=== PATIENT | male | born 1995 | race Caucasian/White ===

== ENCOUNTER 2020-07-30 13:15 | Outpatient (REF) | payer OTHER, SELFPAY | END 2020-07-30 13:16 | disposition home or self-care (01) | LOC: HO.LAB 13:15 | PROVIDERS: Visit Provider Internal Medicine | DX: Z20.822 Contact with and (suspected) exposure to COVID-19 (principal) | CPT/HCPCS: 36415; C9803; U0003; U0005 ==

== ENCOUNTER 2023-03-09 19:14 | Emergency (ER) | payer OTHER, SELFPAY ==
[2023-03-09 19:41] VITALS: BP 151/97; PULSE 85; RESP 18; TEMP 37.3; O2SAT 97; BMI 24.2
--- NOTE | 2023-03-09 19:45 | ED_ITS ---
HPI - Nausea/Vomiting/Diarrhea General Chief complaint: Nausea/Vomiting/Diarrhea Stated complaint: Vomiting/dehydrated/lightheaded/upset stomach Time Seen by Provider: 03/09/23 21:00 Source: patient Mode of arrival: ambulatory Limitations: no limitations History of Present Illness HPI Narrative: Patient comes to the emergency room complaining of nausea vomiting for 4-5 days and decreased p.o. intake. Patient admits that he smokes marijuana, last time 4 days ago. Patient states a few days ago he had diarrhea but not in the last 48 hours. Patient states that any time he tries to eat or drink anything, he vomits immediately. Related Data Previous Rx's Medication Instructions Recorded ondansetron 4 mg disintegrating 4 mg PO Q6H PRN nausea and 03/09/23 tablet vomiting #10 tabs Allergies Allergy/AdvReac Type Severity Reaction Status Date / Time amoxicillin Allergy Rash Verified 03/09/23 19:41 Review of Systems 2 Review of Systems: Constitutional : No Weight loss, No Fever, No Chills, No Night Sweats, No Fatigue, No Malaise ENT/Mouth : No Hearing loss, No Ear Pain, No Nasal Congestion, No Sinus Pain, No Hoarseness, No sore throat, No Rhinorrhea, No Swallowing Difficulty Eyes: No Eye Pain, No Swelling, No Redness, No Foreign Body, No Discharge, No Vision Changes Cardiovascular : No Chest Pain, No SOB, No Dyspnea on Exertion, No Orthopnea, No Edema, No Palpitations Respiratory : No Cough, No Sputum, No Wheezing, No Smoke Exposure, No Dyspnea Gastrointestinal : Complaining of nausea vomiting, diarrhea subsided. No Constipation, Complaining of intermittent abdominal cramping,No Hematochezia, No Melena Genitourinary : no irregular bleeding, No Dysuria, No Urinary Frequency, No Hematuria, No Urinary Incontinence, No Urgency, No Flank Pain, No Urinary Flow Changes, No Hesitancy Musculoskeletal : No joint pain, No Myalgias, No Joint Swelling Skin : No Skin Lesions, No rash Neuro : No Weakness, No Numbness, No Paresthesias, No Loss of Consciousness, No Dizziness, No Headache Psych : No Anxiety/Panic, No Depression, No SI/HI/AH/VH, No Social Issues, Heme/Lymph: No Bruising, No Bleeding,No Lymphadenopathy Endocrine : No Polyuria, No Polydipsia, No Temperature Intolerance PMFSH Past Medical History Medical History (Updated 03/09/23 @ 22:52 by Jaja Leonard MD) Depression with anxiety Social History Social History Alcohol intake: current Alcohol intake frequency: holidays/special occasions only Smoked in Last 30 Days: No Use of substances other than those prescribed or required for medical reasons: No Advance Directives: No Advance Directives Information Provided: No Physical Exam 2 Vital Signs: Vital Signs: Last Vital Signs Temp 99.1 F 03/09/23 19:41 Pulse 78 03/09/23 22:30 Resp 18 03/09/23 19:41 BP 127/77 03/09/23 22:30 Pulse Ox 98 03/09/23 22:30 O2 Del Method Room Air 03/09/23 22:30 BMI result Body Mass Index 24.2 Course Course Course Narrative: This is an RME: Additional HPI, ROS, PE not included below will be deferred to primary provider. This is 27-year-old male presenting to the emergency department for evaluation of nausea vomiting since this morning. Unable to tolerate p.o. secondary to nausea and vomiting. He also reports he stopped smoking marijuana Monday. Abdomen is soft, nontender. Mildly hypertensive, all other vital signs within normal limits. Plan: Labs, viral swabs Medications Administered Discontinued Medications Generic Name Dose Route Start Last Admin Trade Name Khurram PRN Reason Stop Dose Admin Diphenhydramine HCl 25 mg 03/09/23 21:06 03/09/23 21:15 Diphenhydramine Hcl 50 Mg/Ml Vial IVPUSH 03/09/23 21:07 25 mg ONCE ONE Administration Sodium Chloride 1,000 mls @ 999 mls/hr 03/09/23 21:06 03/09/23 22:11 Ns IVCONT 03/09/23 22:06 Infused .Q1H1M ONE Infusion Metoclopramide HCl 10 mg 03/09/23 21:06 03/09/23 21:15 Metoclopramide Hcl 10 Mg/2 Ml Vial IVPUSH 03/09/23 21:07 10 mg ONCE ONE Administration Medical Decision Making Medical Decision Making [facility] Narrative: - patient's physical exam is unremarkable, no abdominal pain on palpation, imaging not indicated this time - patient having IV fluids, Reglan, Benadryl - my interpretation of labs: Unremarkable hematology and chemistry - patient has not vomited in the ED - patient id for discharge Differential Diagnosis Differential Diagnoses: The differential diagnosis associated with the presentation includes ( cyclical vomiting, viral syndrome, gastroenteritis) Lab Data MDM Lab Attestation statement: I reviewed the patient's lab results. 03/09/23 20:35 03/09/23 20:35 Labs: Lab Results 03/09/23 Range/Units 20:35 WBC 8.6 (4.8-10.8) X10*3/uL RBC 5.75 (4.60-5.80) X10*6/uL Hgb 17.4 (14.0-18.0) g/dl Hct 51.4 (42.0-52.0) % MCV 89.4 (80.0-98.0) fL MCH 30.3 (27.0-33.0) pg MCHC 33.9 (31.0-36.0) g/dl RDW 13.2 (11.0-16.0) % Plt Count 278 (160-400) X10*3/uL MPV 10.2 (9.4-12.4) fL Immature Gran % (Auto) 0.2 (0.0-0.4) % Neut % (Auto) 65.9 (45-73) % Lymph % (Auto) 18.7 L (20-40) % [place] % (Auto) 8.1 (2-11) % Eos % (Auto) 6.0 H (0-4) % Baso % (Auto) 1.1 (0-2) % Lymph # (Auto) 1.6 (1.2-4.9) X10*3/uL [place] # (Auto) 0.7 (0.1-1.2) X10*3/uL Eos # (Auto) 0.5 H (0.0-0.4) X10*3/uL Baso # (Auto) 0.1 (0.0-0.2) X10*3/uL Abs Immat Gran (auto) 0.02 (0.00-0.03) X10*3/uL Absolute Neuts (auto) 5.7 (2.0-8.3) x10*3/uL Absolute Nucleated RBC 0.000 (0.0-0.012) X10*3/uL Nucleated RBC % (auto) 0.0 (0.0-0.2) /100WBC Sodium 140 (135-145) mmol/L Potassium 4.4 (3.3-5.1) mmol/L Chloride 104 (96-108) mmol/L Carbon Dioxide 26 (22-29) mmol/L Anion Gap 14 (12-20) BUN 10 (9-16) mg/dL Creatinine 1.05 (0.5-1.4) mg/dL Estim Creat Clear Calc 104.7 Estimated GFR > 60 Random Glucose 91 (60-115) mg/dL Calcium 9.9 (8.4-10.2) mg/dL Magnesium 2.4 (1.6-2.6) mg/dL Total Bilirubin 0.7 (0.0-1.0) mg/dL Direct Bilirubin 0.2 (0.0-0.5) mg/dL AST 24 (5-37) U/L ALT 27 (0-40) U/L Alkaline Phosphatase 73 (39-117) U/L Total Protein 8.4 H (6.5-8.0) g/dL Albumin 4.9 (3.5-5.0) g/dL Lipase 12 (8-78) U/L Influenza Type A (PCR) NEGATIVE (Negative) Influenza Type B (PCR) NEGATIVE (Negative) RSV RNA Qual (PCR) NEGATIVE (Negative) SARS-CoV-2 RNA (RT-PCR) NEGATIVE (Negative) Discharge Plan Discharge Clinical Impression: Nausea & vomiting Patient Disposition: Home, Self-Care Instructions: Acute Nausea and Vomiting (ED) Additional Instructions: Please follow-up with your primary care physician tomorrow. If you have any worsening or new symptoms, please return to the emergency room or call 911 Prescriptions: New ondansetron 4 mg tablet,disintegrating 4 mg PO Q6H PRN (Reason: nausea and vomiting) Qty: 10 0RF
[2023-03-09 20:41] LABS: MANUAL DIFF FLAG NO
[2023-03-09 20:42] LABS: Basophils Absolute Auto 0.1 X10*3/uL (0.0-0.2); Basophils Percent Auto 1.1 % (0-2); Eosinophils Absolute Auto 0.5 X10*3/uL (0.0-0.4); Hematocrit 51.4 % (42.0-52.0); Hemoglobin 17.4 g/dl (14.0-18.0); Imm Gran Abs Auto 0.02 X10*3/uL (0.00-0.03); Imm Gran Pct Auto 0.2 % (0.0-0.4); Lymphocytes Absolute Auto 1.6 X10*3/uL (1.2-4.9); Lymphocytes Percent Auto 18.7 % (20-40); Mean Corpuscular HGB Conc 33.9 g/dl (31.0-36.0); Mean Corpuscular Hemoglobin 30.3 pg (27.0-33.0); Mean Corpuscular Volume 89.4 fL (80.0-98.0); Mean Platelet Volume 10.2 fL (9.4-12.4); Monocytes Absolute Auto 0.7 X10*3/uL (0.1-1.2); Monocytes Percent Auto 8.1 % (2-11); Neutrophils Absolute Auto 5.7 x10*3/uL (2.0-8.3); Neutrophils Percent Auto 65.9 % (45-73); Platelet Count 278 X10*3/uL (160-400); Red Blood Count 5.75 X10*6/uL (4.60-5.80); Red Cell Distribution Width 13.2 % (11.0-16.0); White Blood Count 8.6 X10*3/uL (4.8-10.8)
[2023-03-09 21:07] LABS: Alanine Aminotransferase 27 U/L (0-40); Albumin Level 4.9 g/dL (3.5-5.0); Alkaline Phosphatase 73 U/L (39-117); Anion Gap 14 (12-20); Aspartate Amino Transferase 24 U/L (5-37); Bilirubin Direct 0.2 mg/dL (0.0-0.5); Bilirubin Total 0.7 mg/dL (0.0-1.0); Blood Urea Nitrogen 10 mg/dL (9-16); Calcium 9.9 mg/dL (8.4-10.2); Carbon Dioxide 26 mmol/L (22-29); Chloride 104 mmol/L (96-108); Creatinine Clr Calc Pharmacy 104.7; Estimated Glomerular Filt Rate > 60; Glucose Random 91 mg/dL (60-115); Lipase 12 U/L (8-78); Magnesium 2.4 mg/dL (1.6-2.6); Potassium 4.4 mmol/L (3.3-5.1); Sodium 140 mmol/L (135-145); Total Protein 8.4 g/dL (6.5-8.0)
[2023-03-09] MEDS: diphenhydrAMINE HCL 50 MG/ML VIAL 25 MG IVPUSH (21:15)
[2023-03-09] MEDS: Metoclopramide HCl 10 MG/2 ML VIAL IVPUSH (21:15)
[2023-03-09] MEDS: 0.9 % Sodium Chloride 1,000 ML 999 ML IVCONT (21:15)
[2023-03-09 21:29] LABS: Influenza A PCR NEGATIVE (Negative); Influenza B PCR NEGATIVE (Negative); Resp Syncy Virus RNA Qual PCR NEGATIVE (Negative); SARS COV2 PCR INHOUSE NEGATIVE (Negative)
--- NOTE | 2023-03-09 22:13 | PC.NURSE ---
late entry: 20g IV placed in LAC, fluids completed at this time
[2023-03-09 22:30] VITALS: BP 127/77; PULSE 78; O2SAT 98
== END 2023-03-09 23:00 | disposition home or self-care (01) ==
PROVIDERS: Physician Assistant Medical; Emergency Provider Emergency Medicine; PCP Internal Medicine
DX: R11.2 Nausea with vomiting, unspecified (principal); F12.90 Cannabis use, unspecified, uncomplicated; I10 Essential (primary) hypertension; Z20.822 Contact with and (suspected) exposure to COVID-19; Z20.828 Contact with and (suspected) exposure to other viral communicable diseases
CPT/HCPCS: 0241U; 36415; 80048; 80076; 83690; 83735; 85025; 96361; 96374; 96375; 99284; J1200; J2765

== ENCOUNTER 2023-05-31 07:43 | Outpatient (REF) | payer OTHER, SELFPAY ==
--- NOTE | ~2023-05-31 | FL_ITS ---
EXAMINATION: XR FLUOROSCOPY UPPER GI WITH AIR CLINICAL INFORMATION: Nausea after eating COMPARISON: None TECHNIQUE: Fluoroscopic air contrast upper GI examination was performed utilizing standard techniques with thin and thick barium and effervescent granules. Numerous spot images were obtained. FINDINGS: Dual and single contrast images of the esophagus demonstrate normal caliber, contour, and mucosal pattern. No evidence of stricture, mass, or ulcerations identified. Esophageal peristalsis was normal. A small type I hiatal hernia is present. No significant gastroesophageal reflux was seen during the course of the examination and on reflux views. Dual contrast and single contrast images of the stomach demonstrated normal contour and mucosal pattern without evidence of mass, ulceration, or other abnormality. Contrast freely passed into the gastric antrum and duodenal bulb without delay. Single and air-contrast images of the duodenal bulb demonstrate no abnormality. The duodenal sweep has a normal appearance, course, and mucosal fold appearance. The imaged proximal jejunum has a normal fold pattern and caliber. FLUOROSCOPY TIME: 3 minutes 33 seconds Number of Spot Images: 13 Number of Cine: 6 DOSE AREA PRODUCT: 1665 uGy-m2 (microgray-meter squared) FL/FL upper GI w air IMPRESSION: 1. Small type I hiatal hernia, otherwise unremarkable examination This procedure was performed by Andres Saldñaa PA-C, and supervised by Dr. Foreman
== END 2023-05-31 07:44 | disposition home or self-care (01) ==
LOC: HO.XRAY 07:43
PROVIDERS: PCP Internal Medicine; Visit Provider Internal Medicine
DX: K21.9 Gastro-esophageal reflux disease without esophagitis (principal); R13.10 Dysphagia, unspecified
CPT/HCPCS: 74246

== ENCOUNTER → 2023-05-31 07:45 | Outpatient (BNV) | payer OTHER, SELFPAY | PROVIDERS: PCP Internal Medicine; Visit Provider Radiology Diagnostic Radiology | DX: R11.0 Nausea (principal) | CPT/HCPCS: 74246 ==

== ENCOUNTER 2023-07-07 10:41 | Outpatient (REF) | payer OTHER, SELFPAY ==
[2023-07-07 13:11] LABS: MANUAL DIFF FLAG NO
[2023-07-07 13:28] LABS: Basophils Absolute Auto 0.1 X10*3/uL (0.0-0.2); Basophils Percent Auto 1.3 % (0-2); Eosinophils Absolute Auto 0.7 X10*3/uL (0.0-0.4); Eosinophils Percent Auto 9.5 % (0-4); Hematocrit 49.7 % (42.0-52.0); Hemoglobin 16.4 g/dl (14.0-18.0); Imm Gran Abs Auto 0.02 X10*3/uL (0.00-0.03); Imm Gran Pct Auto 0.3 % (0.0-0.4); Lymphocytes Absolute Auto 1.7 X10*3/uL (1.2-4.9); Lymphocytes Percent Auto 24.4 % (20-40); Mean Corpuscular Hemoglobin 29.5 pg (27.0-33.0); Mean Corpuscular Volume 89.5 fL (80.0-98.0); Mean Platelet Volume 10.6 fL (9.4-12.4); Monocytes Absolute Auto 0.6 X10*3/uL (0.1-1.2); Monocytes Percent Auto 8.4 % (2-11); Neutrophils Absolute Auto 3.8 x10*3/uL (2.0-8.3); Neutrophils Percent Auto 56.1 % (45-73); Platelet Count 259 X10*3/uL (160-400); Red Blood Count 5.55 X10*6/uL (4.60-5.80); Red Cell Distribution Width 12.5 % (11.0-16.0); White Blood Count 6.8 X10*3/uL (4.8-10.8)
[2023-07-07 13:59] LABS: Alanine Aminotransferase 20 U/L (0-40); Albumin Level 4.4 g/dL (3.5-5.0); Alkaline Phosphatase 76 U/L (39-117); Anion Gap 11 (12-20); Aspartate Amino Transferase 18 U/L (5-37); Bilirubin Total 0.6 mg/dL (0.0-1.0); Blood Urea Nitrogen 13 mg/dL (9-16); Calcium 9.2 mg/dL (8.4-10.2); Carbon Dioxide 29 mmol/L (22-29); Chloride 105 mmol/L (96-108); Cholesterol 233 mg/dL (<200); Estimated Glomerular Filt Rate > 60; Glucose Fasting 95 mg/dL (60-99); HDL Cholesterol 42 mg/dL (>40); LDL Cholesterol Calculated 168 mg/dL (<100); Potassium 3.7 mmol/L (3.3-5.1); Sodium 141 mmol/L (135-145); Total Protein 7.6 g/dL (6.5-8.0); Triglycerides 116 mg/dL (<150)
[2023-07-07 14:18] LABS: Free T4 (Free Thyroxine) 1.04 ng/dL (0.71-1.85)
== END 2023-07-07 10:42 | disposition home or self-care (01) ==
LOC: HO.10HDL 10:41
PROVIDERS: Visit Provider Internal Medicine
DX: E78.00 Pure hypercholesterolemia, unspecified (principal); K21.9 Gastro-esophageal reflux disease without esophagitis; R00.2 Palpitations
CPT/HCPCS: 36415; 80053; 80061; 84439; 85025

== ENCOUNTER 2023-12-11 09:23 | Outpatient (REF) | payer OTHER, SELFPAY ==
[2023-12-11 10:44] LABS: D Dimer High Sensitivity 182 NG/ML
[2023-12-11 11:05] LABS: Alanine Aminotransferase 20 U/L (0-40); Albumin Level 4.5 g/dL (3.5-5.0); Alkaline Phosphatase 65 U/L (39-117); Anion Gap 16 (12-20); Aspartate Amino Transferase 21 U/L (5-37); Bilirubin Total 0.7 mg/dL (0.0-1.0); Blood Urea Nitrogen 11 mg/dL (9-16); C Reactive Protein < 0.10 mg/dL (< or = 0.50); Calcium 9.1 mg/dL (8.4-10.2); Carbon Dioxide 29 mmol/L (22-29); Chloride 109 mmol/L (96-108); Cholesterol 261 mg/dL (<200); Estimated Glomerular Filt Rate > 60; Glucose Fasting 89 mg/dL (60-99); HDL Cholesterol 47 mg/dL (>40); LDL Cholesterol Calculated 187 mg/dL (<100); Potassium 3.7 mmol/L (3.3-5.1); Sodium 150 mmol/L (135-145); Triglycerides 139 mg/dL (<150)
[2023-12-11 11:06] LABS: Free T4 (Free Thyroxine) 0.99 ng/dL (0.71-1.85); Thyroid Stimulating Hormone 1.33 uIU/mL (0.32-4.0)
[2023-12-11 11:08] LABS: Erythrocyte Sedimentation Rate 3 MM/HR (0-15)
[2023-12-11 11:11] LABS: Vitamin B12 670 pg/mL (200-900)
== END 2023-12-11 09:24 | disposition home or self-care (01) ==
LOC: HO.10HDL 09:23
PROVIDERS: Visit Provider Internal Medicine
DX: R63.4 Abnormal weight loss (principal); E78.00 Pure hypercholesterolemia, unspecified
CPT/HCPCS: 36415; 80053; 80061; 82550; 82607; 84439; 84443; 85379; 85652; 86140

== ENCOUNTER 2024-11-19 15:51 | Outpatient (AMB) | payer OTHER, SELFPAY ==
--- NOTE | 2024-11-19 15:53 | MHC.PC.OV ---
Vital Signs 11/19/24 15:55 Height 5 ft 9 in Weight 63.957 kg BMI 20.8 BP 110/72 Respiration 14 Pulse 89 Pulse Source Pulse Oximeter Temp 98.9 F Temp Source Temporal Artery Scan Pulse Oximetry (%) 98 Oxygen Delivery Method Room Air Intake Visit Reasons: Routine Rv Repair Technician Required: No Accompanied by: Mother Allergies amoxicillin Allergy (Verified 11/19/24 15:53) Rash HPI HPI Comments History of Present Illness Details 29 year old male with history of gerd, anxiety, and MVP presents to the office accompanied by his mother to establish care. GERD is well managed with PPI and avoidance of triggers and clonidine is helpful for anxiety. He reports that he continue experiencing right sided chest pain which also gives him anxiety. Describes a constant primarily in the left side ongoing for several years. Initially with radiation to the L shoulder years ago but no longer radiates. Pain is worse with deep inspiration. Pain is not positional. No associated sx including sob, orhopnea, lightheadedness, palpitations, or cough. Describes pain as a tightness. He has a signficant cardiac FH with his maternal GF recently passing from cardiac arrest, uncle with fatal PR at age 45, and paternal GM with PR in later years. Has been following with cardiology at [facility]. Per his mother all EKGs have been normal and there is low suspicion that pain is cardiac in etiology. Will request records. No other concerns at this time. ROS: General: No fevers, malaise, unintentional weight loss HEENT: No blurred vision, diplopia. No sore throat, nasal congestion, rhinorrhea, sinus pain, ear pain Cardiovascular: see hpi Respiratory: see hpi GI: No abdominal pain, nausea, vomiting, diarrhea, constipation, melena, hematochezia : No dysuria, hematuria, increased urinary frequency, decreased urinary output MSK: No myalgia, back pain Neuro: No headaches, weakness, paresthesias Skin: No rashes or lesions. EXAM: Constitutional - Awake and Alert, No apparent distress Eyes - PERRL Cardiovascular - S1S2, RRR, No edema Respiratory - Normal lung expansion, Normal respiratory effort, No respiratory distress, CTA bilaterally Extremities - no calf tenderness bilaterally, no swelling Skin - Warm/Dry Neurological - Alert & oriented x3 Psychological - Appropriate affect [facility] Medical History (Updated 11/20/24 @ 13:17 by GRAZYNA Merrill) Hyperlipidemia Chest pain Depression with anxiety Social History (System 04/10/23 @ 16:21 by Ivory Morton) Alcohol intake: current Alcohol intake frequency: holidays/special occasions only Questionnaire PHQ-9 Over the last 2 weeks, how often have you been bothered by any of the following problems? 1. Little interest or pleasure in doing things: several days 2. Feeling down, depressed, or hopeless: more than half the days 3. Trouble falling or staying asleep, or sleeping too much: more than half the days 4. Feeling tired or having little energy: several days 5. Poor appetite or overeating: several days 6. Feeling bad about yourself - or that you are a failure or have let yourself or your family down: several days 7. Trouble concentrating on things, such as reading the newspaper or watching television: several days 8. Moving or speaking so slowly that other people could have noticed. Or the opposite - being so fidgety or restless that you have been moving around a lot more than usual: more than half the days 9. Thoughts that you would be better off or of hurting yourself in some way: not at all Total score: 11 Source: Developed by Drs. Uri Gonzalez, Shena Simon, Eric Edmondson and colleagues, with an educational erasto from [employer]. Thrive Questionnaire Date Thrive assessed: 11/19/24 I am a: Patient Within the past 12 months, did the food you bought not last and you didn't have the money to get more?: Never true Within the past 12 months, did you worry whether your food would run out before you got money to buy more?: Never true Do you have trouble paying for medicines?: No Do you have trouble getting transportation to medical appointments?: No Do you have trouble paying your heating and electricity bill?: No Do you have trouble taking care of your child, family member or friend?: No Do you have trouble with day-to-day activities such as bathing, preparing meals, shopping, managing finances, etc.?: No Are you currently unemployed and looking for a job?: No Are you interested in more education?: No THRIVE Score: 0 AUDIT C Alcohol Use Questionnaire (AUDIT-C) 1. How often do you have a drink containing alcohol?: Never 3. How often do you have six or more drinks on one occasion?: Never Total Score: 0 MARIE-7 AMB Questionnaire MARIE-7 Date MARIE - 7 assessed: 11/19/24 Feeling nervous, anxious, or on edge: 2 = More than half the days Not being able to stop or control worryin = More than half the days Worrying too much about different things: 2 = More than half the days Trouble relaxin = Several days Being so restless that it is hard to sit still: 1 = Several days Becoming easily annoyed or irritable: 1 = Several days Feeling afraid as if something awful might happen: 1 = Several days Total MARIE-7 score (0-4 normal; 5-9 mild; 10-14 moderate; 15-21 severe): 10 Source: Developed by Drs. Uri Gonzalez, Shena Simon, Eric Edmondson and colleagues, with an educational erasto from [employer]. Physical exam (Primary Care) Vital Signs: Last Vital Signs Temp 98.9 F 11/19/24 15:55 Pulse 89 11/19/24 15:55 Resp 14 11/19/24 15:55 BP 110/72 11/19/24 15:55 Pulse Ox 98 11/19/24 15:55 Oxygen Delivery Method Room Air 11/19/24 15:55 BMI result Body Mass Index 20.8 PHQ-9: PHQ-9 Score PHQ-9: Total score 11 11/19/24 17:16 Thrive Assessment: Date of Thrive Assessment Date Thrive assessed 11/19/24 11/19/24 17:16 Coding Level of Care Code New Pt Level 4 (81020) Complex EM visit Add On G2211 Diagnoses Chest pain R07.9 Hyperlipidemia E78.5 Anxiety F41.9 Assessment & Plan Assessment & Plan (1) Chest pain: Code(s): R07.9 - Chest pain, unspecified Category: Medical Plan: Atypical in nature. Will request records from [facility], unlikely to be cardiac in etiology. Possible persistent costochodritis or anxiety related. Will check CXR however. (2) Hyperlipidemia: Code(s): E78.5 - Hyperlipidemia, unspecified Category: Medical Plan: Lipid panel and lipoprotein A ordered. Recommend diet in lower in saturated fats and highly processed foods. Recommend regular exercise (3) Anxiety: Code(s): F41.9 - Anxiety disorder, unspecified Category: Medical Plan: Stable overall. Chest pain occasionally causes anxiety but managed well with clonidine. Continue clonidine, follow with counseling Orders: Orders Lipid Panel Today E78.5 - Hyperlipidemia, unspecified, R07.9 - Chest pain, unspecified XR chest 2V Today R07.9 - Chest pain, unspecified Lipoprotein A Today E78.5 - Hyperlipidemia, unspecified, R07.9 - Chest pain, unspecified Basic Metabolic Panel Today E78.5 - Hyperlipidemia, unspecified, R07.9 - Chest pain, unspecified Complete Blood Count Auto Diff Today E78.5 - Hyperlipidemia, unspecified, R07.9 - Chest pain, unspecified TSH reflex Free T4 Today E78.5 - Hyperlipidemia, unspecified, R07.9 - Chest pain, unspecified
--- OUTSIDE RECORDS SUMMARY | 2024-11-19 15:54 | XMS_ITS | Encounter Summary ---
Author Organization [facility] Address [address] [place] [phone] Phone Care Team Providers Care Line Pilot Name Role Phone Chelsey Rg MD Primary Care Provider Encounter Details Date Type Department Care Team (Late st Contact Info) Description 04/15/2013 Documentation [facility] Family Medicine [address] [place] [address] Family Medicine, Physician [address] [place], [place] [id number] Social History Tobacco Use Types Packs/Day Years Used Date Smoking Tobacco: Never Assessed Sex and Gender Information Value Date Recorded Sex Assigned at Not on file Legal Sex Male 4:46 PM EDT Gender Identity Not on file Sexual Orientation Not on file documented as of this encounter Plan of Treatment Not on file documented as of this encounter Visit Diagnoses Not on filedocumented in this encounter Care Teams Line Pilot Relationship Specialty Start Date End Date Chelsey Rg MD [address] [facility] [place] [address] PCP - General 02/03/17 09/07/22 documented as of this encounter
[2024-11-19 15:55] VITALS: BP 110/72; PULSE 89; RESP 14; TEMP 37.2; O2SAT 98; BMI 20.8
== END 2024-11-19 16:19 | disposition home or self-care (01) ==
LOC: HO.HMCHD 15:52
PROVIDERS: PCP Internal Medicine; Visit Provider Physician Assistant
DX: R07.9 Chest pain, unspecified (principal); E78.5 Hyperlipidemia, unspecified; F41.9 Anxiety disorder, unspecified

== ENCOUNTER → 2024-11-19 15:51 | Outpatient (BNVA) | payer OTHER, SELFPAY | PROVIDERS: PCP Internal Medicine; Visit Provider Physician Assistant | DX: K21.9 Gastro-esophageal reflux disease without esophagitis (principal); R07.9 Chest pain, unspecified; E78.5 Hyperlipidemia, unspecified; F41.9 Anxiety disorder, unspecified | CPT/HCPCS: 99202 ==

== ENCOUNTER 2024-11-20 10:34 | Outpatient (REF) | payer OTHER, SELFPAY ==
--- NOTE | ~2024-11-20 | XR_ITS ---
EXAMINATION: XR CHEST CLINICAL INFORMATION: R07.9 - Chest pain, unspecified COMPARISON: None available. TECHNIQUE: 2 views of the chest were obtained. FINDINGS: The cardiac, hilar, and mediastinal contours are normal. The lungs are clear bilaterally. There is no pneumothorax or pleural effusion. There is no focal osseous or soft tissue abnormality. XR/XR chest 2V IMPRESSION: Normal chest. Electronically signed by: Jason Foreman MD 11/20/2024 11:04 AM EDT
[2024-11-20 11:00] LABS: MANUAL DIFF FLAG NO
--- OUTSIDE RECORDS SUMMARY | 2024-11-20 11:36 | XMS_ITS | Encounter Summary ---
Author Organization [facility] Address [address] [place] [address] Phone Care Team Providers Care Cushion Builder Name Role Phone Chelsey Rg MD Primary Care Provider [phone] Encounter Details Date Type Department Care Team (Late st Contact Info) Description 04/15/2013 Documentation [facility] [place] Family Medicine [address] [place] [address] Family Medicine, Physician [address] [place], [place] [id number] Social History Tobacco Use Types Packs/Day Years [...] on filedocumented in this encounter Care Teams Cushion Builder Relationship Specialty Start Date End Date Chelsey Rg MD [address] [facility] [place] [address] PCP - General 02/03/17 09/07/22 documented as of this encounter
[2024-11-20 11:51] LABS: Basophils Absolute Auto 0.1 X10*3/uL (0.0-0.2); Basophils Percent Auto 1.7 % (0-2); Eosinophils Absolute Auto 0.6 X10*3/uL (0.0-0.4); Eosinophils Percent Auto 12.3 % (0-4); Hemoglobin 16.5 g/dl (14.0-18.0); Imm Gran Abs Auto 0.02 X10*3/uL (0.00-0.03); Imm Gran Pct Auto 0.4 % (0.0-0.4); Lymphocytes Absolute Auto 1.8 X10*3/uL (1.2-4.9); Lymphocytes Percent Auto 33.8 % (20-40); Mean Corpuscular Hemoglobin 29.6 pg (27.0-33.0); Mean Corpuscular Volume 89.6 fL (80.0-98.0); Mean Platelet Volume 10.3 fL (9.4-12.4); Monocytes Absolute Auto 0.5 X10*3/uL (0.1-1.2); Monocytes Percent Auto 8.8 % (2-11); Neutrophils Absolute Auto 2.2 x10*3/uL (2.0-8.3); Platelet Count 198 X10*3/uL (160-400); Red Blood Count 5.58 X10*6/uL (4.60-5.80); Red Cell Distribution Width 12.4 % (11.0-16.0); White Blood Count 5.2 X10*3/uL (4.8-10.8)
[2024-11-20 13:09] LABS: Anion Gap 10 (12-20); Blood Urea Nitrogen 14 mg/dL (9-16); Carbon Dioxide 30 mmol/L (22-29); Chloride 105 mmol/L (96-108); Cholesterol 254 mg/dL (<200); Estimated Glomerular Filt Rate > 60; Glucose Random 83 mg/dL (60-115); HDL Cholesterol 49 mg/dL (>40); LDL Cholesterol Calculated 184 mg/dL (<100); Potassium 3.8 mmol/L (3.3-5.1); Sodium 141 mmol/L (135-145); Triglycerides 107 mg/dL (<150)
[2024-11-20 13:16] LABS: TSH reflex Free T4 1.77 uIU/mL (0.32-4.0)
[2024-11-23 07:03] LABS: Lipoprotein A 14 nmol/L (<75)
== END 2024-11-20 10:35 | disposition home or self-care (01) ==
LOC: HO.LAB 10:34
PROVIDERS: PCP Physician Assistant; Visit Provider Physician Assistant
DX: R07.9 Chest pain, unspecified (principal); E78.5 Hyperlipidemia, unspecified
CPT/HCPCS: 36415; 71046; 80048; 80061; 83695; 84443; 85025

== ENCOUNTER → 2024-11-20 10:39 | Outpatient (BNV) | payer OTHER, SELFPAY | PROVIDERS: PCP Physician Assistant; Visit Provider Radiology Diagnostic Radiology | DX: R07.9 Chest pain, unspecified (principal) | CPT/HCPCS: 71046 ==

== ENCOUNTER 2025-03-11 13:55 | Outpatient (AMB) | payer OTHER, SELFPAY ==
--- NOTE | 2025-03-11 13:57 | A.OFFPC_ITS ---
Vital Signs 03/11/25 14:01 Height 5 ft 9 in Weight 60.923 kg BMI 19.8 BP 102/80 Respiration 14 Pulse 81 Pulse Source Pulse Oximeter Temp 98.6 F Temp Source Temporal Artery Scan Pulse Oximetry (%) 99 Oxygen Delivery Method Room Air Intake Visit Reasons: routine Electrical Prospecting Supervisor Required: No Accompanied by: Mother Allergies amoxicillin Allergy (Verified 03/11/25 13:58) Rash Medication List - Last Reconciled 03/11/25 by GRAZYNA Merrill atorvastatin 40 mg PO BEDTIME clonidine HCl 0.1 mg PO BEDTIME hydroxyzine pamoate 50 mg PO TID PRN omeprazole 40 mg PO BID HPI HPI Comments History of Present Illness Details 29 year old male with history of hld, de pression/anxiety, MVP, atypical chest pain, and GERD presenting to the office today for evaluation of pruritus. He reports that since the beginning of summer, he has been experiencing diffuse itching. He states his symptoms started on his hands and feet, described as a prickly itch. He then began experiencing the symptoms on his torso, back, legs and arms. He does report prior to the onset of symptoms, he did change the center of his soap though the brand remain the same. Detergents have not changed. He does have an allergy to amoxicillin but no other known allergies. He states the symptoms are intermittent, most prominent when he is hot though does not experience any urticarial rash. He does occasionally developed small papules on his arms. He does not feel he is anxious at the time of symptom onset and has not required the use of his hydroxyzine. He has been using Benadryl at night. He reports he has similar episode several years ago that resolved without intervention. No fevers or chills. No known history of eczema ROS: see hpi EXAM: Constitutional - Awake and Alert, No apparent distress Eyes - PERRL, anticteric Cardiovascular - S1S2, RRR, No edema Respiratory - Normal lung expansion, Normal respiratory effort, No respiratory distress, CTA bilaterally Extremities - no calf tenderness bilaterally, no swelling Skin - Warm/Dry. Several tiny papules on the dorsum of the forearms. No jaundice. No urticaria. No dry patches Neurological - Alert & oriented x3 Psychological - Appropriate affect [facility] Medical History (Updated 03/11/25 @ 14:38 by GRAZYNA Merrill) GERD (gastroesophageal reflux disease) Familial hypercholesteremia Hx of mitral valve prolapse Hyperlipidemia Chest pain Depression with anxiety Social History (System 04/10/23 @ 16:21 by Ivory Morton) Alcohol intake: current Alcohol intake frequency: holidays/special occasions only Questionnaire Thrive Questionnaire Date Thrive assessed: 11/19/24 MARIE-7 AMB Questionnaire MARIE-7 Date MARIE - 7 assessed: 11/19/24 Source: Developed by Drs. Uri Gonzalez, Shena Simon, Eric Edmondson and colleagues, with an educational erasto from [email or web address]. Physical exam (Primary Care) Vital Signs: Last Vital Signs Temp 98.6 F 03/11/25 14:01 Pulse 81 03/11/25 14:01 Resp 14 03/11/25 14:01 BP 102/80 03/11/25 14:01 Pulse Ox 99 03/11/25 14:01 Oxygen Delivery Method Room Air 03/11/25 14:01 BMI result Body Mass Index 19.8 Thrive Assessment: Date of Thrive Assessment Date Thrive assessed 11/19/24 03/11/25 13:58 Coding Level of Care Code Est Pt Level 3 (34738) Diagnoses Pruritus L29.9 Hyperlipidemia E78.5 Assessment & Plan Assessment & Plan (1) Pruritus: Code(s): L29.9 - Pruritus, unspecified Category: Medical Plan: Etiology unclear. Possibly irritant dermatitis r/t change in soap scent, though no significant rash. Recommend changing soap scent back to previous or get sensitive skin soap. Change to scent and dye free detergent. Use emolient moisturizer. Check liver panel. Prescribed fexofenadine to be taken on a daily basis. Can continue using Benadryl as needed at night. We will refer to Dermatology for further evaluation of pruritus and consideration of allergy testing. (2) Hyperlipidemia: Code(s): E78.5 - Hyperlipidemia, unspecified Category: Medical Plan: Lipid panel and liver panel ordered. Continue atorvastatin. Plan Follow-up for annual physical exam Orders: Referrals Dermatology Referral L29.9 - Pruritus, unspecified Medications: New fexofenadine 180 mg PO DAILY 90 tabs 1RF
[2025-03-11 14:01] VITALS: BP 102/80; PULSE 81; RESP 14; TEMP 37; O2SAT 99; BMI 19.8
--- OUTSIDE RECORDS SUMMARY | 2025-03-11 17:45 | XMS_ITS | Encounter Summary ---
Author Organization [facility] Address [address] [place] [address] Phone Care Team Providers Care Sweet Goods Machine Operator Name Role Phone Chelsey Rg MD Primary Care Provider [phone] Encounter Details Date Type Department Care Team ([facility] st Contact Info) Description 02/09/2017 Conversion Encounter [facility] [address] [place] [address] Social History Tobacco Use Types Packs/Day Years Used Date Smoking Tobacco: Never Comments:Never smoker Sex and Gender Information Value Date Recorded Sex Assigned at Not on file Legal Sex Male 4:46 PM EDT Gender Identity Not on file Sexual Orientation Not on file documented as of this encounter Plan of Treatment Not on file documented as of this encounter Visit Diagnoses Not on filedocumented in this encounter Care Teams Sweet Goods Machine Operator Relationship Specialty Start Date End Date Chelsey Rg MD [address] [place] [address] PCP - General 02/03/17 09/07/22 documented as of this encounter
--- OUTSIDE RECORDS SUMMARY | 2025-03-11 17:45 | XMS_ITS | Encounter Summary ---
Author Organization [facility] Address [address] [place] [id number] Phone Care Team Providers Care Refuse Driver Name Role Phone Chelsey Rg MD Primary Care Provider [phone] Encounter Details Date Type Department Care Team (Late st Contact Info) Description 04/12/2013 Documentation [facility] Family Medicine [address] [place] [address] Family Medicine, Physician [address] [place], [place] [id number] Social History Tobacco Use Types Packs/Day Years [...] on filedocumented in this encounter Care Teams Refuse Driver Relationship Specialty Start Date End Date Chelsey Rg MD [address] [facility] [place] [address] PCP - General 02/03/17 09/07/22 documented as of this encounter
--- OUTSIDE RECORDS SUMMARY | 2025-03-11 17:45 | XMS_ITS | Clinical Summary ---
Author Organization [facility] Address [address] [place] [address] Phone Care Team Providers Care Chain Hooker Name Role Phone Unavailable Primary Care Provider Unavailabl e Immunizations Immunization Administration Dates Next Due DTP 03/20/1996, 5,1994, 995 DTaP 5 06/24/1999 H1N1 06/02/2009 HPV, Quadrivalent 07/09/2014,04/10/2013,03/08/20 12 Hep A, Adult 07/09/2014 Hep B, ped/adol 03/27/1996,1994 Hib (PRP-T) 03/20/1996, 5,1994, 995 IPV 06/24/1999 Influenza Split 04/10/2013, 2,04/21/2011, 011 Influenza, injectable, quadrivalent 07/09/2014 Influenza, injectable, trivalent 06/02/2009,07/28,05/22/2007 MMR 03/17/1998,03/20/1996 Meningococcal Conj (Menactra) MCV4P 05/22/2007 OPV 1994,1994,1994 Tdap 05/22/2007 Varicella 08/20/2008,03/17/1998 Family History Relation Name Status Comments Father Alive Father: Asthma Mother Alive Mother: Depress ion, migraines Other Family history of Diabetes mellitus, Family history of Hyperlipidemia, Family history of ADD/ADHD, Family history of Asthma, Family history of Strabismus Sister 1 Alive Sister: Alive a nd well, Alive and well Sister 2 Alive Sister: Alive a nd well, Alive and well Social History Tobacco Use Types Packs/Day Years Used Date Smoking Tobacco: Never Comments:Never smoker Sex and Gender Information Value Date Recorded Sex Assigned at Not on file Legal Sex Male 4:46 PM EDT Gender Identity Not on file Sexual Orientation Not on file Last Filed Vital Signs Vital Sign Reading Time Taken Comments Blood Pressure 117/74 07/09/2014 12:00 AM EST Pulse 81 07/09/2014 12:00 AM EST Temperature 36.7 C (98 F) 04/10/2013 12:00 AM EDT Respiratory Rate - - Oxygen Saturation - - Inhaled Oxygen Concentration - - Weight 60.3 kg (133 lb) 07/09/2014 12:00 AM EST Height 174 cm (5' 8.5 ) 07/09/2014 12:00 AM EST Body Mass Index 19.93 07/09/2014 12:00 AM EST Plan of Treatment Health Maintenance Due Date Last Done Comments Hepatitis B Vaccines (3 of 3 - 3-dose series) 05/22/1996 03/27/1996, 1994 DTaP,Tdap,and Td Vaccines (7 - Td or Tdap) 05/22/2017 05/22/2007, 06/24/1999, 03/20/1996, Additional history exists Influenza Vaccines (#1) 2025 07/09/19 15, 04/10/2013, 03/08/2012, Additional history exists COVID-19 Vaccine ( season) 2025 HIB Vaccines Completed 03/20/1996, 10/24, 1994, Additional history exists MMR Vaccines Completed 03/17/1998, 03/20/1996 IPV Vaccines Completed 06/24/1999, 10/24, 1994, Additional history exists Meningococcal Vaccine Aged Out 05/22/2007 No nithin silver eligible based on patient's age to complete this topic Varicella Vaccines Completed 08/20/2008, 03/17/1998 HPV Vaccines Completed 07/09/2014, 03/26, 03/08/2012 Hepatitis A Vaccines Aged Out 07/09/2014 No long er eligible based on patient's age to complete this topic Men B Vaccine Aged Out No longer elig ible based on patient's age to complete this topic Pneumococcal Vaccine Aged Out No long er eligible based on patient's age to complete this topic
--- OUTSIDE RECORDS SUMMARY | 2025-03-11 17:45 | XMS_ITS | Encounter Summary ---
Author Organization [facility] Address [address] [place] [phone] Phone Care Team Providers Care Radiation Control Health Physicist Name Role Phone Chelsey Rg MD Primary Care Provider [phone] Encounter Details Date Type Department Care Team (Late st Contact Info) Description 04/15/2013 Documentation [facility] Family Medicine [address] [place] [address] Family Medicine, Physician [address] [place], [place] [id number] Social History Tobacco Use Types Packs/Day Years [...] on filedocumented in this encounter Care Teams Radiation Control Health Physicist Relationship Specialty Start Date End Date Chelsey Rg MD [address] [facility] [place] [address] PCP - General 02/03/17 09/07/22 documented as of this encounter
--- OUTSIDE RECORDS SUMMARY | 2025-03-11 17:45 | XMS_ITS | Clinical Summary ---
Author Organization [facility] Address [address] [place] [address] Care Team Providers Care Manufacturing Associate Name Role Phone Unavailable Primary Care Provider Unavailabl e Social History Tobacco Use Types Packs/Day Years Used Date Smoking Tobacco: Never Assessed Sex and Gender Information Value Date Recorded Sex Assigned at Not on file Legal Sex Male 8:20 PM EST Gender Identity Not on file Sexual Orientation Not on file Plan of Treatment Health Maintenance Due Date Last Done Comments DTaP,Tdap,and Td Vaccines (1 - Tdap) 2013 Hepatitis B Vaccines (1 of 3 - 19+ 3-dose series) 2013 HIV Screening 07/20/2023 Hepatitis C Screening 07/20/2023 Social Influencers of Health Screening 07/20/2023 Depression Screening 06/26/2024 COVID-19 Vaccine (1 - 2023-2 5 season) 2025 Influenza Vaccine (#1) 2025 HIB Vaccines Aged Out No longer eligi ble based on patient's age to complete this topic HPV Vaccines Aged Out No longer eligi ble based on patient's age to complete this topic Hepatitis A Vaccines Aged Out No long er eligible based on patient's age to complete this topic IPV Vaccines Aged Out No longer eligi ble based on patient's age to complete this topic MMR Vaccines Aged Out No longer eligi ble based on patient's age to complete this topic Meningococcal ACWY Vaccine Aged Out N o longer eligible based on patient's age to complete this topic Meningococcal B Vaccine Aged Out No l onger eligible based on patient's age to complete this topic Pneumococcal Vaccine: Pediat rics (0 to 5 Years) and At-Risk Patients (6 to 49 Years) Aged Out No longer eligible b ased on patient's age to complete this topic RSV Immunization Patients Un rosie 20 months Aged Out No longer eligible b ased on patient's age to complete this topic Varicella Vaccines Aged Out No longer eligible based on patient's age to complete this topic
== END 2025-03-11 14:42 | disposition home or self-care (01) ==
LOC: HO.HMCHD 13:56
PROVIDERS: PCP Physician Assistant; Visit Provider Physician Assistant
DX: L29.9 Pruritus, unspecified (principal); E78.5 Hyperlipidemia, unspecified

== ENCOUNTER → 2025-03-11 13:55 | Outpatient (BNVA) | payer OTHER, SELFPAY | PROVIDERS: PCP Physician Assistant; Visit Provider Physician Assistant | DX: L29.9 Pruritus, unspecified (principal); E78.5 Hyperlipidemia, unspecified; Z79.899 Other long term (current) drug therapy | CPT/HCPCS: 99212 ==